=== PATIENT | female | born 1965 | race African-American/Black ===

== ENCOUNTER 2018-07-25 08:01 | Emergency (ER) | payer OTHER ==
[~2018-07-25] VITALS: Ht 170.2 cm; Wt 117.0 kg
[2018-07-25 08:13] VITALS: Ht 170.2 cm; Wt 117.0 kg
[2018-07-25 08:23] VITALS: BP 159/69
== END 2018-07-25 08:23 | disposition home or self-care (01) ==
LOC: ED 08:01
DX: Z76.0 Encounter for issue of repeat prescription (principal); I10 Essential (primary) hypertension; Z88.0 Allergy status to penicillin; G62.9 Polyneuropathy, unspecified

== ENCOUNTER 2019-01-10 22:35 | Emergency (ER) | payer OTHER ==
[~2019-01-10] VITALS: Ht 170.2 cm; Wt 123.4 kg
[2019-01-10 23:07] VITALS: BP 159/78; Ht 170.2 cm; Wt 123.4 kg
== END 2019-01-11 01:04 | disposition home or self-care (01) ==
LOC: ED 22:35
DX: K02.9 Dental caries, unspecified (principal); H92.01 Otalgia, right ear

== ENCOUNTER 2019-03-11 09:40 | Emergency (ER) | payer OTHER ==
[~2019-03-11] VITALS: Ht 170.2 cm; Wt 122.5 kg
[2019-03-11 09:46] VITALS: BP 165/99; Ht 170.2 cm; Wt 122.5 kg
== END 2019-03-11 11:01 | disposition home or self-care (01) ==
LOC: ED 09:40
DX: J01.90 Acute sinusitis, unspecified (principal); K02.9 Dental caries, unspecified; I10 Essential (primary) hypertension; Z88.0 Allergy status to penicillin; Z98.890 Other specified postprocedural states

== ENCOUNTER 2020-06-16 14:59 | Emergency (ER) | payer OTHER ==
[~2020-06-16] VITALS: Ht 170.2 cm; Wt 114.8 kg
[2020-06-16 15:47] VITALS: BP 157/75; Ht 170.2 cm; Wt 114.8 kg
== END 2020-06-16 16:41 | disposition home or self-care (01) ==
LOC: ED 14:59
DX: J30.9 Allergic rhinitis, unspecified (principal); I10 Essential (primary) hypertension; J32.9 Chronic sinusitis, unspecified; Z88.0 Allergy status to penicillin

== ENCOUNTER 2020-09-27 07:27 | Emergency (ER) | payer MEDICAID ==
[~2020-09-27] VITALS: Ht 170.2 cm; Wt 117.9 kg
[2020-09-27 07:33] VITALS: Ht 170.2 cm; Wt 117.9 kg
[2020-09-27 08:23] LABS: BASOPHIL % 0.7 % (0-2); PLATELET COUNT 277 x10^3mcL (130-400)
[2020-09-27 08:25] LABS: RED CELL DISTRIBUTION WIDTH 14.9 % (11.5-14.5)
[2020-09-27 09:47] LABS: CALCIUM 8.7 mg/dL (8.5-10.1); CARBON DIOXIDE 28.7 mmol/L (21-32); CHLORIDE SERUM 102 mmol/L (98-107); CREATININE SERUM 0.7 mg/dL (0.6-1.0); GFR1 > 60 mL/min; GLUCOSE SERUM 112 mg/dL (74-106); POTASSIUM SERUM 3.5 mmol/L (3.5-5.1); SODIUM SERUM 140 mmol/L (136-145)
[2020-09-27 09:51] LABS: ALBUMIN 4.1 g/dL (3.4-5.0); ALKALINE PHOSPHATASE 59 U/L (46-116); ALT/SGPT 28 U/L (14-59); AMYLASE 57 U/L (25-115); AST/SGOT 16 U/L (15-37); BILIRUBIN TOTAL 0.38 mg/dL (0.20-1.00); LIPASE 117 IU/L (73-393); TOTAL PROTEIN, SERUM 7.5 g/dL (6.4-8.2)
[2020-09-27 10:20] VITALS: BP 175/65
== END 2020-09-27 10:20 | disposition home or self-care (01) ==
LOC: ED 07:27
PROVIDERS: Specialist
DX: R10.11 Right upper quadrant pain (principal); R11.10 Vomiting, unspecified; I10 Essential (primary) hypertension; Z88.0 Allergy status to penicillin; Z98.890 Other specified postprocedural states
CPT/HCPCS: J1885; J2405; J3010; J7050